=== PATIENT | male | born 1955 | race Caucasian/White ===

== ENCOUNTER → 2020-08-31 15:09 | Outpatient (CLI) | payer OTHER ==
[2013-09-06 06:22] VITALS: BMI 33.7
[~2020-08-31 15:09] MED LIST: COLACE100 MG PO; LASIX20 MG PO; NORCO 5/325 TAB1 TA1 PO; VALIUM5 MG PO; VASOTEC20 MG PO; ZEBETA10 MG PO
[2020-08-31 16:07] LABS: ALBUMIN 4.3 g/dL (3.4-5.0); BILIRUBIN - DIRECT 0.08 mg/dL (0.00-0.30); BILIRUBIN - INDIRECT 0.24 mg/dL (0.00-1.00); BILIRUBIN - TOTAL 0.32 mg/dL (0.2-1.3); PROTEIN - SERUM 7.3 g/dL (6.4-8.2)
[2020-09-01 13:13] LABS: HEPATITIS C ANTIBODY <0.1 S/CO RAT (0.0-0.9)
== END | disposition home or self-care (01) ==
LOC: D.US 15:09
PROVIDERS: ATTEND Internal Medicine Gastroenterology
DX: R94.5 Abnormal results of liver function studies (principal)